=== PATIENT | male | born 1990 | race Caucasian/White ===

== ENCOUNTER 2016-07-22 10:41 | Emergency (ER) | payer SELFPAY ==
[2016-07-22] MEDS ORDERED: BOOSTRIX IM ONE (11:37)
[2016-07-22] MEDS ORDERED: NORCO 7.5/325 PO ONE (11:38)
[2016-07-22] MEDS ORDERED: XYLOCAINE 1% MPF 5 mL INFILTRATI ONE (11:39)
[2016-07-22] MEDS ORDERED: ROCEPHIN IM ONE (11:39)
[2016-07-22] MEDS ORDERED: ZITHROMAX PO ONE (11:39)
--- NOTE | 2016-07-22 11:41 | Emergency Department Report ---
ED Laceration [facility] - HPI Chief Complaint: Extremity Injury, Lower Stated Complaint: LT LEG INJURY Occurred When: Today Location: Lower Extremity (left anterior tib/fib) Severity: mild Tetanus Status: Not up to Date Laceration Symptoms: Yes Pain, No Foreign Body Sensation, No Numbness, No Weakness ED Review of Systems ROS: Stated complaint: LT LEG INJURY Other details as noted in HPI Constitutional: denies: chills, fever Eyes: denies: eye pain, eye discharge, vision change ENT: denies: ear pain, throat pain Respiratory: denies: cough, shortness of breath, wheezing Cardiovascular: denies: chest pain, palpitations Endocrine: no symptoms reported Gastrointestinal: denies: abdominal pain, nausea, diarrhea Genitourinary: denies: urgency, dysuria Musculoskeletal: denies: back pain, joint swelling, arthralgia Skin: other (3cm lac present over anterior left tib/fib). denies: rash, lesions Neurological: denies: headache, weakness, paresthesias Psychiatric: denies: anxiety, depression Hematological/Lymphatic: denies: easy bleeding, easy bruising ED Past Medical Hx - Past Medical History Previous Medical History?: No - Surgical History Past Surgical History?: Yes Additional Surgical History: Left hand surgery - Social History Smoking Status: Current Every Day Smoker Substance Use Type: Alcohol, Non Opiate Pain - Medications Home Medications: Home Medications Medication Instructions Recorded Confirmed Last Taken Type Phenazopyridine [Pyridium] 100 mg PO TID #9 tab 07/22/16 Unknown Rx Sulfamethoxazole/Trimethoprim 1 each PO BID #20 tablet 07/22/16 Unknown Rx [Bactrim DS TAB] Laceration Physical Exam - Exam General: Vital signs noted. No distress. Alert and acting appropriately. Laceration Location: Lower Extremity (left anterior tib/fib) Laceration Exam: Yes Normal Distal CMS, No Foreign Body, No Exposed Tendon, Vessel, or Nerve, No Tendon Injury ED Course Vital Signs 07/22/16 10:50 Temperature 98.4 F Pulse Rate 50 L Respiratory 18 Rate Blood Pressure 151/88 O2 Sat by Pulse 100 Oximetry - Laceration /Wound Repair Left Anterior Distal Leg Wound Location: lower extremity (left anterior tib/fib) Wound Length (cm): 3 Wound's Depth, Shape: superficial, linear Wound Explored: clean Irrigated w/ Saline (ccs): 50 Betadine Prep?: Yes Anesthesia: Lidocaine w/ Epi Volume Anesthetic (ccs): 5 Wound Debrided: moderate Wound Repaired With: sutures Suture Size/Type: 4:0, proline Number of Sutures: 7 Layer Closure?: No Sterile Dressing Applied?: Yes Progress: patient tolerated procedure well ED Medical Decision Making - Lab Data Lab Results 07/22/16 Range/Units 11:54 Urine Color Yellow (Yellow) Urine Turbidity Slightly-cloudy (Clear) Urine pH 7.0 (5.0-7.0) Ur Specific [place] 1.024 (1.003-1.030) Urine Protein <15 mg/dl (Negative) mg/dL Urine Glucose (UA) Neg (Negative) mg/dL Urine Ketones Neg (Negative) mg/dL Urine Blood Neg (Negative) Urine Nitrite Neg (Negative) Urine Bilirubin Neg (Negative) Urine Urobilinogen 2.0 (<2.0) mg/dL Ur Leukocyte Esterase Lg (Negative) Urine WBC (Auto) 148.0 H (0.0-6.0) /HPF Urine RBC (Auto) 11.0 (0.0-6.0) /HPF U Epithel Cells (Auto) < 1.0 (0-13.0) /HPF Urine Bacteria (Auto) 1+ (Negative) /HPF Urine WBC Clumps 2+ /HPF Urine Mucus Few /HPF - Medical Decision Making 26 year old male presents to ED with left anterior tib/fib laceration just [employer] and also would like to be checked for STD. patient tolerated sutures well and has recieved IM and PO antibiotics for dysuria and penile discharge. patient has GC culture pending and understands to return within 3-5 days if he desires results of testing. patient has UTI with elevated WBC's in urine. Critical care attestation.: If time is entered above; I have spent that time in minutes in the direct care of this critically ill patient, excluding procedure time. ED Disposition Clinical Impression: Laceration UTI (urinary tract infection) Qualifiers: Urinary tract infection type: acute cystitis Hematuria presence: without hematuria Qualified Code(s): N30.00 - Acute cystitis without hematuria Disposition: DISCHARGED TO HOME OR SELFCARE Is pt being admited?: No Does the pt Need Aspirin: No Condition: Stable Instructions: Suture Care (ED), Laceration (ED) Additional Instructions: Please return to ED within 7-10 days for removal of 7 sutures. Prescriptions: Phenazopyridine [Pyridium] 100 mg PO TID #9 tab Sulfamethoxazole/Trimethoprim [Bactrim DS TAB] 1 each PO BID #20 tablet Referrals: PRIMARY CARE, [Primary Care Provider] - 3-5 Days
[2016-07-22] MEDS ORDERED: XYLOCAINE 1%/ EPI 1:100,000 INFILTRATI ONE (11:42)
[2016-07-22] MEDS ORDERED: POLYSPORIN TP ONE (12:46)
[2016-07-22] MEDS ORDERED: TRIPLE ANTIBIOTIC TP ONE (13:10)
[2016-07-22 13:26] VITALS: BP 157/66
[2016-07-22 13:33] LABS: Bacteria,Urine 1+ /HPF (Negative); Bilirubin,Urine NEG (Negative); Blood,Urine NEG (Negative); Ketones,Urine NEG (Negative); Leukocyte Esterase,Urine LG (Negative); Mucus,Urine FEW /HPF; Nitrite,Urine NEG (Negative); Protein,Urine <15 mg/dL mg/dL (Negative)
== END 2016-07-22 13:51 | disposition home or self-care (01) ==
LOC: ED 10:41
DX: S81.812A Laceration without foreign body, left lower leg, initial encounter (principal); N30.00 Acute cystitis without hematuria; F17.200 Nicotine dependence, unspecified, uncomplicated; X58.XXXA Exposure to other specified factors, initial encounter; Y93.89 Activity, other specified; Y92.89 Other specified places as the place of occurrence of the external cause; Y99.8 Other external cause status
CPT/HCPCS: 12002; 81001; 87086; 87591; 90471; 90715; 96372; 99283; J0696; A6250

== ENCOUNTER 2019-01-14 12:47 | Emergency (ER) | payer BC ==
[2019-01-14 13:00] VITALS: BP 139/75
--- NOTE | 2019-01-14 13:01 | Event Note ---
ED Screening Note Date of service: 01/14/19 Time: 12:58 ED Screening Note: 28 y o male presents with lower back pain s/p ground level fall 2 weeks ago pain not resolved and getting worse This initial assessment/diagnostic orders/clinical plan/treatment(s) is/are subject to change based on patients health status, clinical progression and re- assessment by fellow clinical providers in the ED. Further treatment and workup at subsequent clinical providers discretion. Patient/guardian urged not to elope from the ED as their condition may be serious if not clinically assessed and managed. Initial orders include: xr lumbar acc eval
== END 2019-01-14 16:23 | disposition left against medical advice (07) ==
LOC: ED 12:47
DX: M54.9 Dorsalgia, unspecified (principal); Z53.21 Procedure and treatment not carried out due to patient leaving prior to being seen by health care provider

== ENCOUNTER 2021-09-25 13:11 | Emergency (ER) | payer SELFPAY ==
[2021-09-25 14:13] VITALS: BP 126/84
[2021-09-25] MEDS ORDERED: HYDROcodone/ACETAMINOPHEN 5-325 MG TAB PO ONE (16:39)
[2021-09-25] MEDS ORDERED: IBUPROFEN 800 MG TAB PO ONE (16:39)
[2021-09-25] MEDS ORDERED: CYCLOBENZAPRINE 10 MG TAB PO ONE (16:39)
--- NOTE | 2021-09-25 16:40 | Emergency Department Report ---
ED Back Pain/Injury HPI - General Chief Complaint: Back Pain/Injury Stated Complaint: LOWER BACK PAIN Time Seen by Provider: 09/25/21 16:37 Source: patient Limitations: No Limitations - History of Present Illness Initial Comments: 31 YO COMES TO ER WITH LBP AFTER TWISTING HIS BACK WHILE PLAYING WITH DOG. NO FALL NO URINARY SYMPTOMS NEURO INTACT AMBULATORY TO ER NO S/S CAUDA EQUINA MD Complaint: back pain -: Sudden Similar Symptoms Previously: No Place: home Radiation: none Severity: moderate Severity scale (0 -10): 3 Quality: aching Consistency: intermittent Improves With: immobilization Worsens With: movement Context: turning/twisting Associated Symptoms: denies other symptoms - Related Data Previous Rx's Medication Instructions Recorded Last Taken Type Cyclobenzaprine [Flexeril] 10 mg PO TID PRN #10 tablet 09/25/21 Unknown Rx Ibuprofen [Motrin] 800 mg PO Q8HR PRN #30 tablet 09/25/21 Unknown Rx predniSONE [Deltasone] 20 mg PO DAILY #5 tablet 09/25/21 Unknown Rx Allergies Allergy/AdvReac Type Severity Reaction Status Date / Time No Known Allergies Allergy Unverified 07/22/16 10:50 ED Review of Systems ROS: Stated complaint: LOWER BACK PAIN Other details as noted in HPI Comment: All other systems reviewed and negative ED Past Medical Hx - Past Medical History Previous Medical History?: Yes Additional medical history: OBESE - Surgical History Past Surgical History?: Yes Additional Surgical History: Left hand surgery - Family History Family history: no significant - Social History Smoking Status: Never Smoker Substance Use Type: Marijuana - Medications Home Medications: Home Medications Medication Instructions Recorded Confirmed Last Taken Type Cyclobenzaprine [Flexeril] 10 mg PO TID PRN #10 tablet 09/25/21 Unknown Rx Ibuprofen [Motrin] 800 mg PO Q8HR PRN #30 tablet 09/25/21 Unknown Rx predniSONE [Deltasone] 20 mg PO DAILY #5 tablet 09/25/21 Unknown Rx ED Physical Exam - General Limitations: No Limitations General appearance: alert, in no apparent distress - Head Head exam: Present: atraumatic, normocephalic - Eye Eye exam: Present: normal appearance - ENT ENT exam: Present: mucous membranes moist - Neck Neck exam: Present: normal inspection - Respiratory Respiratory exam: Present: normal lung sounds bilaterally. Absent: respiratory distress - Cardiovascular Cardiovascular Exam: Present: regular rate, normal rhythm. Absent: systolic murmur, diastolic murmur, rubs, gallop - GI/Abdominal GI/Abdominal exam: Present: soft, normal bowel sounds - Rectal Rectal exam: Present: deferred - Extremities Exam Extremities exam: Present: normal inspection - Back Exam Back exam: Present: normal inspection - Neurological Exam Neurological exam: Present: alert, oriented X3 - Psychiatric Psychiatric exam: Present: normal affect, normal mood - Skin Skin exam: Present: warm, dry, intact, normal color. Absent: rash ED Course Vital Signs 09/25/21 14:11 Temperature 98.3 F Pulse Rate 55 L Respiratory 14 Rate Blood Pressure 126/84 [Right] O2 Sat by Pulse 98 Oximetry ED Medical Decision Making - Medical Decision Making NO S/S CAUDA EQUINA NO INCONTINENCE NO FEVER NEURO INTACT NO SPINE TENDERNESS PAIN WORSE WITH MOVEMENT; REPLICATED ON EXAM MEDICATED FOR PAIN DC HOME WITH DC PLAN OF CARE INCLUDING DIET, MEDS, ACTIVITY AND FOLLOW UP. HE VERBALIZES UNDERSTANDING OF PLAN OF CARE. Vital Signs 09/25/21 14:11 Temperature 98.3 F Pulse Rate 55 L Respiratory 14 Rate Blood Pressure 126/84 [Right] O2 Sat by Pulse 98 Oximetry - Differential Diagnosis BACK STRAIN Critical care attestation.: If time is entered above; I have spent that time in minutes in the direct care of this critically ill patient, excluding procedure time. ED Disposition Clinical Impression: Low back strain Qualifiers: Encounter type: initial encounter Qualified Code(s): S39.012A - Strain of muscle, fascia and tendon of lower back, initial encounter Disposition: HOME / SELF CARE / HOMELESS Is pt being admited?: No Does the pt Need Aspirin: No Condition: Stable Instructions: Lumbar Sprain Additional Instructions: WARM BATHS AND COMPRESSES MEDS ORDERED FOR PAIN IF PAIN PERSISTS BEYOND 48 HOURS FOLLOW UP WITH PCP REFERRAL BELOW Referrals: MANSI GARG MD [Staff Physician] - 3-5 Days Forms: Work/School Release Form(ED) Time of Disposition: 16:59
== END 2021-09-25 17:34 | disposition home or self-care (01) ==
LOC: ED 13:11
DX: S39.012A Strain of muscle, fascia and tendon of lower back, initial encounter (principal); X50.1XXA Overexertion from prolonged static or awkward postures, initial encounter; Y93.89 Activity, other specified; Y92.89 Other specified places as the place of occurrence of the external cause; Y99.8 Other external cause status
CPT/HCPCS: 99282